=== PATIENT | male | born 1990 | race Caucasian/White ===

== ENCOUNTER 2018-03-04 22:16 | Emergency (ER) | payer OTHER ==
[~2018-03-04] VITALS: Ht 182.9 cm; Wt 83.9 kg
[~2018-03-04 22:16] MED LIST: HYOS.125 SL; RXHYOS.125 PO; TYLENOL
== END 2018-03-05 01:52 | disposition home or self-care (01) ==
LOC: ER 22:16
DX: S80.12XA Contusion of left lower leg, initial encounter (principal); S00.03XA Contusion of scalp, initial encounter; V49.9XXA Car occupant (driver) (passenger) injured in unspecified traffic accident, initial encounter; Y92.89 Other specified places as the place of occurrence of the external cause; Y99.0 Civilian activity done for income or pay
CPT/HCPCS: 99282